=== PATIENT | male | born 1960 | race Caucasian/White ===

== ENCOUNTER 2017-02-06 16:23 | Emergency (ER) | payer OTHER ==
[~2017-02-06] VITALS: Ht 177.8 cm; Wt 67.5 kg
[~2017-02-06 16:23] MED LIST: ATORVASTATIN CA20 MG PO; BACTRIM,SEPT1 TABLET PO; CEPHALEXIN500 MG PO; CYCLOBENZAPRINE10 MG PO; CYMBALTA30 MG PO; CYMBALTA60 MG PO; DESYREL100 MG PO; DIAZEPAM2 MG PO; Dilaudid PO; Effexor PO; Elavil PO; GABAPENTIN400 MG PO; HYDROXYCHLOROQ200 MG PO; LOMOTIL,LONO1 TABLET PO; Levaquin PO; METHOTREXATE PO; METHOTREXATE2.5 MG PO; MIRALAX255 GM PO; OXAYDO5 MG PO; OXYCODONE-APAP1 EACH PO; PREDNISONE10 MG PO; PREDNISONE2.5 M1 PO; PREDNISONE5 MG PO; ROPINIROLE HCL1 MG PO; SERTRALINE HCL100 MG PO; SOMA250 MG PO; SPIRIVA1 INHALATI IH; Soma PO; TOPIRAMATE100 MG PO; VALTREX1000 MG PO; VOLTAREN75 MG PO; ValTRex PO; Zocor PO; Zoloft PO; [UNRECOGNIZED DRUG - OTHER] PO; predniSONE PO
[2017-02-06] MEDS ORDERED: KEFLEX500 MG PO (17:49)
[2017-02-06 18:24] VITALS: BP 117/85
[2017-02-07] MEDS ORDERED: VITAMIN D2000 UNI1 PO (15:04)
== END 2017-02-06 18:31 | disposition home or self-care (01) ==
LOC: EME 16:23
PROC: 0H9MXZZ Drainage of Right Foot Skin, External Approach (ICD-10-PCS; principal; 2017-02-06)
DX: L02.611 Cutaneous abscess of right foot (principal); G89.29 Other chronic pain; J45.909 Unspecified asthma, uncomplicated; Z79.891 Long term (current) use of opiate analgesic; Z79.52 Long term (current) use of systemic steroids; F17.200 Nicotine dependence, unspecified, uncomplicated
CPT/HCPCS: 99281; 99285

== ENCOUNTER 2017-02-07 09:46 | Inpatient (IN) | payer OTHER ==
[~2017-02-07] VITALS: Ht 177.8 cm; Wt 68.0 kg
[~2017-02-07 09:46] MED LIST changes: +KEFLEX500 MG PO
[2017-02-07 13:31] VITALS: BP 128/87
[2017-02-07 13:55] LABS: Estimated Average Glucose 120 mg/dL (70-123); HEMOGLOBIN A1c (GLYCOHEMOGLOB) 5.8 % HGB (Below 5.7)
[2017-02-07 13:56] LABS: ANION GAP 9 MEQ/L (2-14); CHLORIDE 103 MEQ/L (99-109); POTASSIUM 3.8 MEQ/L (3.7-5.4); SAMPLE HEMOLYSIS CHECK 0; SAMPLE ICTERIC CHECK 0; SAMPLE LIPEMIA CHECK 0; SODIUM 139 MEQ/L (136-147); TOTAL BILIRUBIN 0.3 MG/DL (0.0-1.0)
[2017-02-07 14:06] LABS: ALKALINE PHOSPHATASE 103 IU/L (3-129); GFR ESTIMATE (CALCULATED) > 59 mL/min/; GLUCOSE 100 mg/dL (70-99); HDL CHOLESTEROL 34 MG/DL (Desirable>=40); LDL CHOLESTEROL 49 mg/dL (Desirable<100); NON-HDL CHOLESTEROL 68 mg/dL (Desirable<160); TOTAL CHOLESTEROL 102 mg/dL (Desirable<200); TRIGLYCERIDES 96 MG/DL (Normal: <150); UREA NITROGEN (BUN) 10 mg/dL (9-23)
[2017-02-07 14:08] LABS: HEMATOCRIT 43.3 % (38.0-50.0); MCH 30.9 PG (29.0-34.0); MCHC 32.8 G/DL (30.0-36.0); MCV 94.3 FL (86-99); MEAN PLAT.VOLUME 9.9 uM^3 (9.0-12.4); PLATELET COUNT 454 K/uL (156-360); RBC DIS.WIDTH-CV 13.4 % (11.8-14.6); RBC DIS.WIDTH-SD 46.8 % (39-53); RED BLOOD COUNT 4.59 M/uL (4.00-5.50); WHITE BLOOD COUNT 17.2 K/uL (4.1-10.2)
[2017-02-07 14:47] LABS: HBSG INDEX 0.22
[2017-02-07 14:49] LABS: ANTI-HEPATITIS B CORE (IGM) Nonreactive; HBC IgM INDEX 0.09
[2017-02-07 14:50] LABS: HIV INDEX 0.06; HIV-1/2 AB/AG COMBO Nonreactive
[2017-02-07] MEDS ORDERED: VITAMIN D2000 UNI1 PO (15:04)
[2017-02-07 20:06] VITALS: BP 130/78
[2017-02-07 23:40] VITALS: BP 125/78
[2017-02-08 03:23] VITALS: BP 128/75
[2017-02-08 07:49] VITALS: BP 127/71
[2017-02-08 11:27] VITALS: BP 122/77
[2017-02-08 11:54] LABS: HIV INDEX 0.07; HIV-1/2 AB/AG COMBO Nonreactive
[2017-02-08 16:28] VITALS: BP 125/72
[2017-02-08 20:43] VITALS: BP 113/75
[2017-02-08 23:44] VITALS: BP 123/70
[2017-02-09 04:06] VITALS: BP 133/80
[2017-02-09 07:45] VITALS: BP 132/78
[2017-02-09 12:20] VITALS: BP 115/73
[2017-02-09 15:50] VITALS: BP 120/74
[2017-02-09 23:48] VITALS: BP 137/87
[2017-02-10 07:55] VITALS: BP 128/79
[2017-02-10 12:00] VITALS: BP 130/80
[2017-02-10 16:10] VITALS: BP 127/77
[2017-02-10 23:45] VITALS: BP 116/76
[2017-02-11 07:39] VITALS: BP 112/80
[2017-02-11 08:59] LABS: HEMATOCRIT 37.7 % (38.0-50.0); MCH 30.7 PG (29.0-34.0); MCHC 32.4 G/DL (30.0-36.0); MCV 94.7 FL (86-99); MEAN PLAT.VOLUME 9.6 uM^3 (9.0-12.4); PLATELET COUNT 416 K/uL (156-360); RED BLOOD COUNT 3.98 M/uL (4.00-5.50); WHITE BLOOD COUNT 12.2 K/uL (4.1-10.2)
[2017-02-11 09:07] LABS: ANION GAP 11 MEQ/L (2-14); CHLORIDE 101 MEQ/L (99-109); GFR ESTIMATE (CALCULATED) > 59 mL/min/; GLUCOSE 78 mg/dL (70-99); POTASSIUM 3.6 MEQ/L (3.7-5.4); SAMPLE HEMOLYSIS CHECK 0; SAMPLE ICTERIC CHECK 0; SAMPLE LIPEMIA CHECK 0; SODIUM 140 MEQ/L (136-147); UREA NITROGEN (BUN) 13 mg/dL (9-23)
[2017-02-11 11:35] VITALS: BP 140/87
[2017-02-11 16:13] VITALS: BP 120/78
[2017-02-12] VITALS: BP 136/76
[2017-02-12 08:00] VITALS: BP 137/84
[2017-02-12 08:40] VITALS: BP 137/84
[2017-02-12 16:10] VITALS: BP 135/83
[2017-02-12 23:40] VITALS: BP 135/90
[2017-02-13 07:45] VITALS: BP 134/83
[2017-02-13] MEDS ORDERED: OXYCODONE HCL5 MG PO (09:20)
[2017-02-13] MEDS ORDERED: PANTOPRAZOLE SO40 MG PO (09:20)
[2017-02-13] MEDS ORDERED: VANCOMYCIN750 MG/151 IV (09:20)
[2017-02-13] MEDS ORDERED: GABAPENTIN400 MG PO (09:20)
[2017-02-13 11:00] VITALS: BP 141/85
== END 2017-02-13 12:21 | DRG 570 ==
LOC: AMB 09:46 → 2SOUTH 12:20 → 2EAST 12:20
PROVIDERS: Surgery
DX: L02.611 Cutaneous abscess of right foot (principal); K65.1 Peritoneal abscess; M86.171 Other acute osteomyelitis, right ankle and foot; M84.474K Pathological fracture, right foot, subsequent encounter for fracture with nonunion; M84.475K Pathological fracture, left foot, subsequent encounter for fracture with nonunion; F33.9 Major depressive disorder, recurrent, unspecified; F11.20 Opioid dependence, uncomplicated; K61.1 Rectal abscess; K68.11 Postprocedural retroperitoneal abscess; L97.512 Non-pressure chronic ulcer of other part of right foot with fat layer exposed; M06.9 Rheumatoid arthritis, unspecified; G25.81 Restless legs syndrome; K43.2 Incisional hernia without obstruction or gangrene; B95.62 Methicillin resistant Staphylococcus aureus infection as the cause of diseases classified elsewhere; R09.02 Hypoxemia; G89.4 Chronic pain syndrome; E78.5 Hyperlipidemia, unspecified; F41.9 Anxiety disorder, unspecified; R00.0 Tachycardia, unspecified; J45.909 Unspecified asthma, uncomplicated; G47.00 Insomnia, unspecified; Z86.14 Personal history of Methicillin resistant Staphylococcus aureus infection; Z87.891 Personal history of nicotine dependence; Z79.52 Long term (current) use of systemic steroids
CPT/HCPCS: 71020; 73630; 74150; 76937; 80048; 80053; 80061; 80202; 82565; 83036; 85027; 86703; 86705; 86803; 87070; 87075; 87076; 87077; 87147; 87186; 87205; 87340; 93005; 94640; 94640 76; 94799; 99213; 99281; 99285; G0103; J0295; J0330; J1100; J1170; J1650; J2250; J2405; J2710; J2765; J3010; J3370; J7050; J7120; J7512

== ENCOUNTER → 2017-02-25 | Outpatient (CLI) | payer OTHER ==
[~2017-02-25] MED LIST changes: +OXYCODONE HCL5 MG PO; +PANTOPRAZOLE SO40 MG PO; +VANCOMYCIN750 MG/151 IV; +VITAMIN D2000 UNI1 PO
== END | disposition home or self-care (01) ==
LOC: AMB 02-19 10:30
DX: Z09 Encounter for follow-up examination after completed treatment for conditions other than malignant neoplasm (principal); Z53.21 Procedure and treatment not carried out due to patient leaving prior to being seen by health care provider

== ENCOUNTER → 2017-03-03 | Outpatient (CLI) | payer OTHER | LOC: AMB 13:30 | DX: Z09 Encounter for follow-up examination after completed treatment for conditions other than malignant neoplasm (principal) ==

== ENCOUNTER → 2017-03-17 | Outpatient (CLI) | payer OTHER | LOC: AMB 12:10 | DX: Z48.89 Encounter for other specified surgical aftercare (principal); M86.9 Osteomyelitis, unspecified; Z87.891 Personal history of nicotine dependence; Q79.59 Other congenital malformations of abdominal wall | CPT/HCPCS: 99212 ==

== ENCOUNTER 2017-06-30 10:21 | Emergency (ER) | payer OTHER ==
[~2017-06-30] VITALS: Ht 177.8 cm; Wt 71.3 kg
[2017-06-30 10:37] VITALS: BP 94/82
[2017-06-30] MEDS ORDERED: PREDNISONE5 MG PO (11:50)
== END 2017-06-30 12:14 | disposition home or self-care (01) ==
LOC: EME 10:21
DX: M19.90 Unspecified osteoarthritis, unspecified site (principal); G89.29 Other chronic pain
CPT/HCPCS: J1100; J3010

== ENCOUNTER 2017-07-13 21:03 | Inpatient (IN) | payer OTHER ==
[~2017-07-13] VITALS: Ht 180.3 cm; Wt 72.5 kg
[2017-07-13 22:51] LABS: HEMATOCRIT 43.9 % (38.0-50.0); MCH 30.8 PG (29.0-34.0); MCHC 33.7 G/DL (30.0-36.0); MCV 91.5 FL (86-99); MEAN PLAT.VOLUME 9.9 uM^3 (9.0-12.4); PLATELET COUNT 343 K/uL (156-360); RBC DIS.WIDTH-CV 13.8 % (11.8-14.6); RBC DIS.WIDTH-SD 47.1 % (39-53); WHITE BLOOD COUNT 19.9 K/uL (4.1-10.2)
[2017-07-13 23:02] LABS: CHLORIDE 110 mEq/L (99-109); POTASSIUM 4.1 mEq/L (3.7-5.4); SODIUM 140 mEq/L (136-147)
[2017-07-13 23:04] LABS: GLUCOSE 112 mg/dL (70-99)
[2017-07-13 23:05] LABS: ANION GAP 10 MEQ/L (2-14)
[2017-07-13 23:07] LABS: GFR ESTIMATE (CALCULATED) > 59 mL/min/
[2017-07-13 23:08] LABS: UREA NITROGEN (BUN) 25 mg/dL (9-23)
[2017-07-14 02:10] VITALS: BP 120/59
[2017-07-14 02:49] LABS: ERTH.SED.RATE 66 MM/HR (0-20)
[2017-07-14 05:25] LABS: C-REACTIVE PROTEIN 37.9 MG/L (0-10)
[2017-07-14 06:26] LABS: HEMATOCRIT 42.2 % (38.0-50.0); MCH 31.4 PG (29.0-34.0); MCHC 33.9 G/DL (30.0-36.0); MCV 92.7 FL (86-99); MEAN PLAT.VOLUME 10.1 uM^3 (9.0-12.4); PLATELET COUNT 339 K/uL (156-360); RBC DIS.WIDTH-CV 14.2 % (11.8-14.6); RBC DIS.WIDTH-SD 47.8 % (39-53); RED BLOOD COUNT 4.55 M/uL (4.00-5.50); WHITE BLOOD COUNT 18.2 K/uL (4.1-10.2)
[2017-07-14 07:15] LABS: ABS NEUTROPHIL COUNT 17.4; ATYPICAL LYMPHOCYTE 1.8 %; EOSINOPHIL ABS CT 0; INSTRUMENT ABS NEUTROPHIL CT 16.7 K/uL; LYMPHOCYTES 0.9 % (15.0-45.0); MYELOCYTES 0.9 %; PLAT.SUFFICIENCY ADEQUATE; SEG.NEUTROPHILS 95.5 % (46.0-76.0)
[2017-07-14 07:26] LABS: ANION GAP 8 MEQ/L (2-14); CHLORIDE 110 MEQ/L (99-109); GFR ESTIMATE (CALCULATED) > 59 mL/min/; GLUCOSE 128 mg/dL (70-99); POTASSIUM 3.9 MEQ/L (3.7-5.4); SAMPLE HEMOLYSIS CHECK 0; SAMPLE ICTERIC CHECK 0; SAMPLE LIPEMIA CHECK 0; SODIUM 139 MEQ/L (136-147); UREA NITROGEN (BUN) 20 mg/dL (9-23)
[2017-07-14 07:30] VITALS: BP 98/66
[2017-07-14] MEDS ORDERED: PERCOCET 10/1 TABLET PO (11:33)
[2017-07-14] MEDS ORDERED: AMBIEN10 MG PO (11:38)
[2017-07-14 11:52] VITALS: BP 90/60
[2017-07-14 15:53] VITALS: BP 105/66
[2017-07-14 18:57] VITALS: BP 104/63
[2017-07-15 00:53] VITALS: BP 116/67
[2017-07-15 07:05] VITALS: BP 99/65
[2017-07-15 15:55] VITALS: BP 142/93
[2017-07-16 01:05] VITALS: BP 118/79
[2017-07-16 06:18] LABS: HEMATOCRIT 44.1 % (38.0-50.0); MCH 30.3 PG (29.0-34.0); MCHC 32.9 G/DL (30.0-36.0); MCV 92.1 FL (86-99); PLATELET COUNT 346 K/uL (156-360); RBC DIS.WIDTH-SD 47.5 % (39-53); RED BLOOD COUNT 4.79 M/uL (4.00-5.50); WHITE BLOOD COUNT 13.6 K/uL (4.1-10.2)
[2017-07-16 06:39] LABS: ANION GAP 7 MEQ/L (2-14); CHLORIDE 108 MEQ/L (99-109); GFR ESTIMATE (CALCULATED) > 59 mL/min/; POTASSIUM 4.3 MEQ/L (3.7-5.4); SAMPLE HEMOLYSIS CHECK 0; SAMPLE ICTERIC CHECK 0; SAMPLE LIPEMIA CHECK 0; SODIUM 141 MEQ/L (136-147); UREA NITROGEN (BUN) 22 mg/dL (9-23)
[2017-07-16 06:41] LABS: GLUCOSE 73 mg/dL (70-99)
[2017-07-16 06:55] VITALS: BP 130/89
[2017-07-16 15:15] VITALS: BP 131/92
[2017-07-16 23:36] VITALS: BP 128/88
[2017-07-17 10:50] VITALS: BP 163/81
[2017-07-17 12:22] VITALS: BP 136/95
[2017-07-17 15:59] VITALS: BP 129/84
[2017-07-18 00:31] VITALS: BP 145/90
[2017-07-18 07:58] VITALS: BP 119/69
[2017-07-18 08:59] LABS: EOSINOPHIL (%) 3.5 % (0-5); EOSINOPHIL COUNT 0.5 K/uL (0-0.3); HEMATOCRIT 44.5 % (38.0-50.0); IMMATURE GRANULOCYTE (%) 0.9 % (0.0-0.7); IMMATURE GRANULOCYTE COUNT 0.1 K/uL; INSTRUMENT ABS NEUTROPHIL CT 10.1 K/uL; LYMPHOCYTE COUNT 3.3 K/uL (1.0-2.8); MCH 30.8 PG (29.0-34.0); MCHC 33.3 G/DL (30.0-36.0); MCV 92.5 FL (86-99); MEAN PLAT.VOLUME 9.6 uM^3 (9.0-12.4); MONOCYTE (%) 6.8 % (3-12); NEUTROPHIL (%) 66.7 % (45-76); NEUTROPHIL COUNT 10.1 K/uL (1.8-6.4); PLATELET COUNT 284 K/uL (156-360); RBC DIS.WIDTH-SD 47.8 % (39-53); RED BLOOD COUNT 4.81 M/uL (4.00-5.50); WHITE BLOOD COUNT 15.2 K/uL (4.1-10.2)
[2017-07-18 09:18] LABS: ANION GAP 5 MEQ/L (2-14); CHLORIDE 109 MEQ/L (99-109); MAGNESIUM 1.9 mg/dl (1.3-2.7); POTASSIUM 4.6 MEQ/L (3.7-5.4); SAMPLE HEMOLYSIS CHECK 0; SAMPLE ICTERIC CHECK 0; SAMPLE LIPEMIA CHECK 0; SODIUM 141 MEQ/L (136-147); TOTAL BILIRUBIN 0.4 MG/DL (0.0-1.0)
[2017-07-18 09:30] LABS: ALKALINE PHOSPHATASE 88 IU/L (3-129); GFR ESTIMATE (CALCULATED) > 59 mL/min/; UREA NITROGEN (BUN) 17 mg/dL (9-23)
[2017-07-18 09:31] LABS: GLUCOSE 105 mg/dL (70-99)
[2017-07-18] MEDS ORDERED: DURICEF1 GM PO (09:53)
[2017-07-18 12:41] VITALS: BP 119/69
[2017-07-18] MEDS ORDERED: WELLBUTRIN SR150 MG PO (13:09)
[2017-07-18] MEDS ORDERED: PERCOCET 10/1 TABLET PO (13:09)
== END 2017-07-18 15:01 | disposition home health service (06) | DRG 475 ==
LOC: EME 21:03 → EDOF 07-14 01:20 → ENRESERV 07-14 01:20 → 5EAST 07-14 01:20 → ENRESERV 07-14 01:29 → 5EAST 07-14 02:15
PROVIDERS: Hospitalist; Physician Assistant; Surgery
PROC: 0Y9M0ZZ Drainage of Right Foot, Open Approach (ICD-10-PCS; 2017-07-14)
PROC: 0Y6M0ZC Detachment at Right Foot, Partial 3rd Ray, Open Approach (ICD-10-PCS; principal; 2017-07-17)
DX: M86.9 Osteomyelitis, unspecified (principal); L02.611 Cutaneous abscess of right foot; B95.61 Methicillin susceptible Staphylococcus aureus infection as the cause of diseases classified elsewhere; M84.474A Pathological fracture, right foot, initial encounter for fracture; M06.9 Rheumatoid arthritis, unspecified; E78.5 Hyperlipidemia, unspecified; J44.9 Chronic obstructive pulmonary disease, unspecified; G25.81 Restless legs syndrome; F32.9 Major depressive disorder, single episode, unspecified; F41.9 Anxiety disorder, unspecified; G89.29 Other chronic pain; G62.9 Polyneuropathy, unspecified; M24.477 Recurrent dislocation, right toe(s); F17.210 Nicotine dependence, cigarettes, uncomplicated; Z96.691 Finger-joint replacement of right hand; Z86.14 Personal history of Methicillin resistant Staphylococcus aureus infection; Z98.1 Arthrodesis status
CPT/HCPCS: 73701; 73720; 80048; 80053; 80202; 83605; 83735; 84100; 85025; 85027; 85651; 86140; 87040; 87070; 87075; 87076; 87077; 87147; 87185; 87186; 87205; 88305; 88311; 94640; 94640 76; 94760; 94799; 99281; 99284; J0690; J1170; J1200; J1644; J2250; J2270; J2405; J2543; J2930; J3010; J3370; J7030; J7050; J7512; S0020

== ENCOUNTER 2018-01-14 17:15 | Inpatient (IN) | payer OTHER ==
[~2018-01-14] VITALS: Ht 177.8 cm; Wt 75.2 kg
[~2018-01-14 17:15] MED LIST changes: +AMBIEN10 MG PO; +DURICEF1 GM PO; +PERCOCET 10/1 TABLET PO; +WELLBUTRIN SR150 MG PO
[2018-01-14 18:01] LABS: BASOPHIL (%) 0.5 % (0-1); BASOPHIL COUNT 0.1 K/uL (0-0.1); EOSINOPHIL (%) 0.3 % (0-5); EOSINOPHIL COUNT 0.1 K/uL (0-0.3); HEMATOCRIT 45.8 % (38.0-50.0); HEMOGLOBIN 15.9 G/DL (12.5-16.6); IMMATURE GRANULOCYTE (%) 0.8 % (0.0-0.7); LYMPHOCYTE (%) 11.2 % (15-42); LYMPHOCYTE COUNT 2.1 K/uL (1.0-2.8); MCHC 34.7 G/DL (30.0-36.0); MONOCYTE (%) 5.7 % (3-12); MONOCYTE COUNT 1.1 K/uL (0-0.8); NEUTROPHIL (%) 81.5 % (45-76); NEUTROPHIL COUNT 15.1 K/uL (1.8-6.4); PLATELET COUNT 293 K/uL (156-360); RBC DIS.WIDTH-CV 13.9 % (11.8-14.6); RBC DIS.WIDTH-SD 48.5 % (39-53); RED BLOOD COUNT 4.82 M/uL (4.00-5.50); WHITE BLOOD COUNT 18.5 K/uL (4.1-10.2)
[2018-01-14 18:20] LABS: TROP-I INTERPRETATION NEGATIVE; TROPONIN-I 0.01 ng/mL (0.0-0.30)
[2018-01-14 18:27] LABS: CHLORIDE 103 MEQ/L (99-109); GFR ESTIMATE (CALCULATED) > 59 mL/min/ (58.99-99999); GLUCOSE 141 mg/dL (70-99); POTASSIUM 3.8 MEQ/L (3.7-5.4); SODIUM 136 MEQ/L (136-147); UREA NITROGEN (BUN) 21 mg/dL (9-23)
[2018-01-14 21:13] LABS: TROP-I INTERPRETATION NEGATIVE; TROPONIN-I 0.02 ng/mL (0.0-0.30)
[2018-01-14] MEDS ORDERED: ZOLOFT100 MG PO (22:17)
[2018-01-14] MEDS ORDERED: TRAZODONE HCL50 MG PO (22:17)
[2018-01-14] MEDS ORDERED: SINGULAIR10 MG PO (22:18)
[2018-01-15 02:49] VITALS: BP 128/92
[2018-01-15 05:42] LABS: HEMATOCRIT 43.7 % (38.0-50.0); HEMOGLOBIN 14.7 G/DL (12.5-16.6); MCH 32.3 PG (29.0-34.0); MCHC 33.6 G/DL (30.0-36.0); PLATELET COUNT 285 K/uL (156-360); RBC DIS.WIDTH-CV 13.9 % (11.8-14.6); RBC DIS.WIDTH-SD 49.1 % (39-53); RED BLOOD COUNT 4.55 M/uL (4.00-5.50); WHITE BLOOD COUNT 13.9 K/uL (4.1-10.2)
[2018-01-15 05:59] LABS: TROP-I INTERPRETATION NEGATIVE; TROPONIN-I 0.01 ng/mL (0.0-0.30)
[2018-01-15 06:03] LABS: ALBUMIN 3.4 G/DL (3.2-4.8); ALKALINE PHOSPHATASE 98 IU/L (3-129); ALT (GPT) 28 IU/L (3-49); AST (GOT) 13 IU/L (2-34); CHLORIDE 104 MEQ/L (99-109); CREATININE 1.1 MG/DL (0.6-1.3); GFR ESTIMATE (CALCULATED) > 59 mL/min/ (58.99-99999); POTASSIUM 3.6 MEQ/L (3.7-5.4); SODIUM 137 MEQ/L (136-147); TOTAL BILIRUBIN 0.6 MG/DL (0.0-1.0); TOTAL PROTEIN 6.7 G/DL (6.4-8.3); UREA NITROGEN (BUN) 19 mg/dL (9-23)
[2018-01-15 06:04] LABS: GLUCOSE 89 mg/dL (70-99)
[2018-01-15 07:30] VITALS: BP 149/83
[2018-01-15 11:21] VITALS: BP 110/82
[2018-01-15 16:00] VITALS: BP 133/87
[2018-01-15 19:00] VITALS: BP 148/94
[2018-01-15 23:15] VITALS: BP 151/85
[2018-01-16 05:00] VITALS: BP 140/71
[2018-01-16 07:43] VITALS: BP 128/67
[2018-01-16 07:45] VITALS: BP 125/87
[2018-01-16 12:12] VITALS: BP 135/81
== END 2018-01-16 13:20 | disposition home or self-care (01) | DRG 395 ==
LOC: EME 17:15 → 4EAST 01-15 00:58 → EDOF 01-15 00:58 → ENRESERV 01-15 01:03 → 4EAST 01-15 02:34 → EDPENDDISTM 01-16 → ENPENDDIS 01-16 → EDPENDDISDT 01-16 → 4EAST 01-16 13:20
PROVIDERS: Emergency Medicine; Family Medicine
DX: K43.0 Incisional hernia with obstruction, without gangrene (principal); J43.9 Emphysema, unspecified; I71.4 Abdominal aortic aneurysm, without rupture; E11.9 Type 2 diabetes mellitus without complications; I10 Essential (primary) hypertension; E78.5 Hyperlipidemia, unspecified; I25.10 Atherosclerotic heart disease of native coronary artery without angina pectoris; G89.29 Other chronic pain; M06.9 Rheumatoid arthritis, unspecified; M19.90 Unspecified osteoarthritis, unspecified site; F32.9 Major depressive disorder, single episode, unspecified; G25.81 Restless legs syndrome; F41.9 Anxiety disorder, unspecified; Z79.52 Long term (current) use of systemic steroids; Z86.14 Personal history of Methicillin resistant Staphylococcus aureus infection; Z87.442 Personal history of urinary calculi; F17.210 Nicotine dependence, cigarettes, uncomplicated
CPT/HCPCS: 71275; 74022; 74177; 80048; 80053; 84484; 85025; 85027; 85379; 93005; 93970; 94640; 94640 76; 94799; 99202; 99281; 99285; J1885; J2405; J3010; J7030; J7512

== ENCOUNTER 2018-04-23 23:27 | Observation (INO) | payer OTHER ==
[~2018-04-23] VITALS: Ht 177.8 cm; Wt 78.3 kg
[~2018-04-23 23:27] MED LIST changes: +SINGULAIR10 MG PO; +TRAZODONE HCL50 MG PO; +ZOLOFT100 MG PO
[2018-04-23 23:53] LABS: HEMATOCRIT 45.5 % (38.0-50.0); HEMOGLOBIN 16.1 G/DL (12.5-16.6); MCH 33.7 PG (29.0-34.0); MCHC 35.4 G/DL (30.0-36.0); MCV 95.2 FL (86-99); PLATELET COUNT 301 K/uL (156-360); RBC DIS.WIDTH-CV 14.1 % (11.8-14.6); RBC DIS.WIDTH-SD 49.4 % (39-53); RED BLOOD COUNT 4.78 M/uL (4.00-5.50); WHITE BLOOD COUNT 13.9 K/uL (4.1-10.2)
[2018-04-24 00:05] LABS: ALBUMIN 3.5 g/dL (3.2-4.8); CHLORIDE 107 mEq/L (99-109); POTASSIUM 4.2 mEq/L (3.7-5.4); SODIUM 139 mEq/L (136-147)
[2018-04-24 00:07] LABS: GLUCOSE 163 mg/dL (70-99); TOTAL PROTEIN 7.3 g/dL (6.4-8.3)
[2018-04-24 00:09] LABS: TOTAL BILIRUBIN 0.2 mg/dL (0.0-1.0)
[2018-04-24 00:11] LABS: ALKALINE PHOSPHATASE 156 IU/L (3-129); CREATININE 1.1 mg/dL (0.6-1.3); GFR ESTIMATE (CALCULATED) > 59 mL/min/ (58.99-99999)
[2018-04-24 00:12] LABS: UREA NITROGEN (BUN) 22 mg/dL (9-23)
[2018-04-24 00:13] LABS: AST (GOT) 25 IU/L (2-34)
[2018-04-24 00:14] LABS: ALT (GPT) 46 IU/L (3-49); LIPASE 24 U/L (1.0-51.0)
[2018-04-24 00:17] LABS: TROP-I INTERPRETATION NEGATIVE; TROPONIN-I < 0.01 ng/mL (0.0-0.30)
[2018-04-24 02:46] LABS: APPEARANCE CLEAR ((CLEAR)); BILIRUBIN NEGATIVE; BLOOD NEGATIVE; COLOR YELLOW ((YELLOW)); GLUCOSE (STRIP) NEGATIVE; KETONES NEGATIVE; LEUKOCYTES NEGATIVE; NITRITE NEGATIVE; PROTEIN (STRIP) NEGATIVE; SPECIFIC GRAVITY 1.019 (1.000-1.030); UCUL ADDED? NO; UROBILINOGEN 0.2 MG/DL (0.2-1.0)
[2018-04-24 04:53] LABS: BASOPHIL (%) 0.7 % (0-1); BASOPHIL COUNT 0.1 K/uL (0-0.1); EOSINOPHIL (%) 2.1 % (0-5); EOSINOPHIL COUNT 0.3 K/uL (0-0.3); HEMATOCRIT 42.9 % (38.0-50.0); HEMOGLOBIN 14.9 G/DL (12.5-16.6); IMMATURE GRANULOCYTE (%) 0.9 % (0.0-0.7); LYMPHOCYTE (%) 24.7 % (15-42); LYMPHOCYTE COUNT 3.4 K/uL (1.0-2.8); MCH 33.4 PG (29.0-34.0); MCHC 34.7 G/DL (30.0-36.0); MCV 96.2 FL (86-99); MONOCYTE (%) 6.7 % (3-12); MONOCYTE COUNT 0.9 K/uL (0-0.8); NEUTROPHIL (%) 64.9 % (45-76); PLATELET COUNT 279 K/uL (156-360); RBC DIS.WIDTH-CV 14.1 % (11.8-14.6); RBC DIS.WIDTH-SD 49.6 % (39-53); RED BLOOD COUNT 4.46 M/uL (4.00-5.50); WHITE BLOOD COUNT 13.8 K/uL (4.1-10.2)
[2018-04-24 05:02] LABS: CHLORIDE 109 mEq/L (99-109); POTASSIUM 4.2 mEq/L (3.7-5.4); SODIUM 139 mEq/L (136-147)
[2018-04-24 05:08] LABS: CREATININE 0.9 mg/dL (0.6-1.3); GFR ESTIMATE (CALCULATED) > 59 mL/min/ (58.99-99999)
[2018-04-24 05:09] LABS: UREA NITROGEN (BUN) 23 mg/dL (9-23)
[2018-04-24 05:15] LABS: TROP-I INTERPRETATION NEGATIVE; TROPONIN-I 0.02 ng/mL (0.0-0.30)
[2018-04-24 05:22] LABS: GLUCOSE 102 mg/dL (70-99)
[2018-04-24 06:05] VITALS: BP 124/85
[2018-04-24 07:51] VITALS: BP 135/95
[2018-04-24 12:06] VITALS: BP 101/65
[2018-04-24 12:57] LABS: TROP-I INTERPRETATION NEGATIVE; TROPONIN-I < 0.01 ng/mL (0.0-0.30)
[2018-04-24 16:15] VITALS: BP 105/66
[2018-04-24] MEDS ORDERED: SOMA350 MG PO (19:20)
[2018-04-24] MEDS ORDERED: ANORO ELLIPTA1 EACH AEROSOL (19:23)
[2018-04-24] MEDS ORDERED: ATORVASTATIN CA10 MG PO (19:25)
[2018-04-24 20:00] VITALS: BP 110/75
[2018-04-25] VITALS: BP 97/57
[2018-04-25 04:37] VITALS: BP 10/67
[2018-04-25 05:36] LABS: HEMATOCRIT 41.4 % (38.0-50.0); HEMOGLOBIN 13.9 G/DL (12.5-16.6); MCH 31.9 PG (29.0-34.0); MCHC 33.6 G/DL (30.0-36.0); PLATELET COUNT 296 K/uL (156-360); RBC DIS.WIDTH-CV 13.5 % (11.8-14.6); RBC DIS.WIDTH-SD 47.5 % (39-53); RED BLOOD COUNT 4.36 M/uL (4.00-5.50); WHITE BLOOD COUNT 13.8 K/uL (4.1-10.2)
[2018-04-25 08:37] VITALS: BP 121/80
[2018-04-25] MEDS ORDERED: AZITHROMYCIN500 M1 PO (10:53)
[2018-04-25] MEDS ORDERED: DOCUSATE SODIU100 MG PO (10:54)
[2018-04-25] MEDS ORDERED: PREDNISONE5 MG PO (11:00)
[2018-04-25] MEDS ORDERED: PREDNISONE10 MG PO (11:02)
== END 2018-04-25 11:51 | disposition home or self-care (01) ==
LOC: EME → EDBD 23:27 → EME 04-24 00:04 → EDOF 04-24 03:39 → 4SOUTH 04-24 03:39 → ENRESERV 04-24 03:41 → 4SOUTH 04-24 05:55
PROVIDERS: Emergency Medicine; Hospitalist; Physician Assistant Medical
DX: R10.84 Generalized abdominal pain (principal); K43.2 Incisional hernia without obstruction or gangrene; I71.4 Abdominal aortic aneurysm, without rupture; I25.10 Atherosclerotic heart disease of native coronary artery without angina pectoris; E78.5 Hyperlipidemia, unspecified; J44.9 Chronic obstructive pulmonary disease, unspecified; M06.9 Rheumatoid arthritis, unspecified; F17.210 Nicotine dependence, cigarettes, uncomplicated
CPT/HCPCS: 70450; 71045; 74177; 80048; 80053; 81003; 83605; 83690; 84484; 85025; 85027; 93005; 94640; 94799; 99202; 99281; 99285; G0378; J1644; J2405; J2765; J2920; J2930; J3010; J7030; J7512; S0028